=== PATIENT | female | born 1980 | race Caucasian/White ===

== ENCOUNTER 2023-06-29 23:09 | Emergency (ER) | payer SELFPAY ==
[2023-06-29] MEDS ORDERED: Ibuprofen 600 MG Tab PO ONE (23:45)
== END 2023-06-30 00:11 | disposition home or self-care (01) ==
LOC: MW.ED 23:09
DX: S43.005A Unspecified dislocation of left shoulder joint, initial encounter (principal); Y04.0XXA Assault by unarmed brawl or fight, initial encounter; Y92.009 Unspecified place in unspecified non-institutional (private) residence as the place of occurrence of the external cause
CPT/HCPCS: 23650; 73030; 99284; A9270; 99283